=== PATIENT | male | born 1995 | race Caucasian/White ===

== ENCOUNTER 2022-11-23 22:00 | Emergency (ER) | payer BC ==
[~2022-11-23] VITALS: Ht 172.7 cm; Wt 70.3 kg
[2022-11-23 22:05] VITALS: BP 130/79
--- NOTE | 2022-11-23 22:19 | NUR ---
DR FERRELL AT BEDSIDE. ULTRASOUND AT STAND BY
--- NOTE | 2022-11-23 22:20 | NUR ---
URINE COLLECTED AND SENT TO LAB
[2022-11-23 22:31] LABS: APPEARANCE,URINE CLEAR (CLEAR); BILIRUBIN,URINE NEGATIVE (NEGATIVE); BLOOD, URINE NEGATIVE (NEGATIVE); COLOR,URINE YELLOW (YELLOW); LEUKOCYTE ESTERASE ,URINE NEGATIVE (NEGATIVE); NITRITE, URINE NEGATIVE (NEGATIVE); PH,URINE 6.5 (5.0-9.0); UGLUCOSE NEGATIVE (NEGATIVE)
[2022-11-23 22:49] LABS: RBC,URINE 0-5 /HPF (0-5); WBC,URINE NONE SEEN /HPF (0-5)
[2022-11-23] MEDS ORDERED: IBUP-2213 PO (23:24)
[2022-11-23 23:38] VITALS: BP 126/82
== END 2022-11-23 23:38 | disposition home or self-care (01) ==
LOC: MED 22:00
DX: R10.31 Right lower quadrant pain (principal)
CPT/HCPCS: 76870; 81001; 99284; Q0092